=== PATIENT | female | born 1960 | race Caucasian/White ===

== ENCOUNTER 2017-08-29 09:32 | Inpatient (IN) | payer MEDICARE ==
[~2017-08-29] VITALS: Ht 172.7 cm; Wt 63.0 kg
[~2017-08-29 09:32] MED LIST: BACITRACIN 50,000 UNIT ONE; BUPIVACAINE/PF 0.5% ONE; EPINEPHRINE 1 MG/ML, 1ML ONE; OXYC5CAP2 PO; THROMBIN 5,000 UNIT VIAL TP ONE
[2017-08-29] MEDS ORDERED: LACTATED RINGERS 1,000 ML IV SCH (09:58)
[2017-08-29 10:22] VITALS: BP 133/74
[2017-08-29] MEDS ORDERED: MIDAZOLAM 1 MG/ML, 2ML ONE ×2 (12:51→13:09)
[2017-08-29] MEDS ORDERED: FENTANYL PF 100 MCG/2ML ONE (12:51)
[2017-08-29] MEDS ORDERED: methylPREDNISolone SOD SUCC 125 MG/2 ML ONE (13:45)
[2017-08-29] MEDS ORDERED: REMIFENTANIL 1 MG ONE (14:58)
[2017-08-29] MEDS ORDERED: SODIUM CHLORIDE 0.9%, 500ML IVBOLUS ONE (16:00)
[2017-08-29 16:23] LABS: INTERNATIONAL NORMALIZED RATIO 1.15 (0.93-1.1); PROTHROMBIN TIME 11.9 Seconds (9.6-11.5)
[2017-08-29 16:28] LABS: ALBUMIN 2.8 g/dL (3.4-5.0); ANION GAP 9 mmol/L (5-15); CALCIUM 7.5 mg/dL (8.5-10.1); CHLORIDE 112 mmol/L (98-107); CREATININE 0.38 mg/dL (0.55-1.02)
[2017-08-29 16:39] LABS: MEAN CORPUSCULAR HEMOGLOBIN 28.2 pg (27.0-34.8); MEAN CORPUSCULAR HGB CONC 32.6 g/dL (32.4-35.8); MEAN CORPUSCULAR VOLUME 86.6 fL (80-100); MEAN PLATELET VOLUME 6.9 fL (7.4-10.4); PLATELET COUNT 117 x10^3/uL (130-400); RED BLOOD COUNT 3.98 x10^6/uL (3.82-5.3); RED CELL DISTRIBUTION WIDTH 18.3 % (9.6-15.2)
[2017-08-29 16:41] LABS: MD YES
[2017-08-29 16:52] LABS: <PLATELET ESTIMATE> DECREASED; <PLT MORPHOLOGY> NORMAL PLT MORPH; ANISOCYTOSIS 1+; BAND#(MANUAL) 0.12 x10^3/uL; BANDS%(MANUAL) 2 % (0-7); BASOS#(MANUAL) 0.06 x10^3/uL (0-0.1); BASOS% (MANUAL) 1 % (0-1); LYMPH#(MANUAL) 0.31 x10^3/uL (1-3.4); LYMPHS% (MANUAL) 5 % (22-44); METAMYELOCYTES# (MANUAL) 0.06 x10^3/uL (0-0); METAMYELOCYTES% (MANUAL) 1 % (0-1); MONOS#(MANUAL) 0.37 x10^3/uL (0.3-2.7); MONOS% (MANUAL) 6 % (2-9); MYELOCYTES# (MANUAL) 0.06 x10^3/uL (0-0); MYELOCYTES% (MANUAL) 1 % (0-0); SEG#(MANUAL) 5.12 x10^3/uL (1.8-6.8); SEGS% (MANUAL) 84 % (42-75)
[2017-08-29] MEDS: POTASSIUM CHLORIDE 20 MEQ TAB.ER.PRT PO SCH ×2 (17:31→21:52)
[2017-08-29 19:24] LABS: TROPONIN I < 0.015 ng/mL (0.000-0.045)
[2017-08-29] MEDS: OXYcodone 5 MG/5 ML ORAL.SOL UDC PO PRN (21:51)
[2017-08-30 04:00] VITALS: BP 145/64
[2017-08-30] MEDS: OXYcodone 5 MG/5 ML ORAL.SOL UDC PO PRN (04:28)
[2017-08-30 04:41] LABS: BASOPHILS # (AUTO) 0.01 x10^3/uL (0-0.1); BASOPHILS % (AUTO) 0 % (0-1); EOSINOPHILS % (AUTO) 0 % (1-7); LYMPHOCYTES % (AUTO) 10 % (22-44); MD NO; MEAN CORPUSCULAR HEMOGLOBIN 28.4 pg (27.0-34.8); MEAN CORPUSCULAR HGB CONC 32.9 g/dL (32.4-35.8); MEAN CORPUSCULAR VOLUME 86.4 fL (80-100); MEAN PLATELET VOLUME 7.4 fL (7.4-10.4); MONOCYTES # (AUTO) 0.68 x10^3/uL (0.2-0.8); MONOCYTES % (AUTO) 16 % (2-9); NEUTROPHILS # (AUTO) 3.09 x10^3/uL (1.8-6.8); NEUTROPHILS % (AUTO) 74 % (42-75); PLATELET COUNT 105 x10^3/uL (130-400); RED BLOOD COUNT 3.92 x10^6/uL (3.82-5.3); RED CELL DISTRIBUTION WIDTH 17.9 % (9.6-15.2)
[2017-08-30 04:48] LABS: ALBUMIN 3.1 g/dL (3.4-5.0); ANION GAP 7 mmol/L (5-15); CALCIUM 8.2 mg/dL (8.5-10.1); CHLORIDE 105 mmol/L (98-107); CREATININE 0.49 mg/dL (0.55-1.02)
[2017-08-30 05:12] LABS: INTERNATIONAL NORMALIZED RATIO 1.17 (0.93-1.1); PROTHROMBIN TIME 12.1 Seconds (9.6-11.5)
[2017-08-30] MEDS ORDERED: BUPIVACAINE/PF 0.5% ONE (06:25)
[2017-08-30] MEDS ORDERED: THROMBIN 5,000 UNIT VIAL TP ONE (06:25)
[2017-08-30] MEDS ORDERED: EPINEPHRINE 1 MG/ML, 1ML ONE (06:26)
[2017-08-30] MEDS ORDERED: BACITRACIN 50,000 UNIT ONE (06:26)
[2017-08-30] MEDS ORDERED: SODIUM CHLORIDE 0.9%, 500ML IVBOLUS ONE (08:30)
[2017-08-30 09:44] LABS: AMPHETAMINE SCREEN, URINE Negative (Negative); BARBITURATE SCREEN, URINE Negative (Negative); BENZODIAZEPINE SCREEN, URINE Positive (Negative); CANNABINOID SCREEN, URINE Positive (Negative); COCAINE SCREEN, URINE Negative (Negative); METHADONE SCREEN, URINE Negative (Negative); OPIATE SCREEN, URINE Negative (Negative)
[2017-08-30] MEDS ORDERED: FENTANYL PF 250 MCG/5ML ONE ×2 (11:51→15:11)
[2017-08-30] MEDS ORDERED: NEOSTIGMINE 1 MG/ML, 10ML ONE (11:58)
[2017-08-30] MEDS ORDERED: DEXAMETHASONE 4 MG/ML, 1ML ONE (11:58)
[2017-08-30] MEDS ORDERED: GLYCOPYRROLATE 0.2MG/1ML, 5ML ONE (11:58)
[2017-08-30] MEDS ORDERED: PROPOFOL 10 MG/ML, 20ML ONE (11:58)
[2017-08-30] MEDS ORDERED: CEFAZOLIN 1,000 MG ONE (11:58)
[2017-08-30] MEDS ORDERED: ONDANSETRON 2MG/ML, 2ML ONE (11:58)
[2017-08-30] MEDS ORDERED: MIDAZOLAM 1 MG/ML, 2ML ONE (11:58)
[2017-08-30] MEDS ORDERED: SUCCINYLCHOLINE 20 MG/ML, 10ML ONE (11:58)
[2017-08-30] MEDS ORDERED: VASOPRESSIN 20 UNIT/ML, 1ML ONE (14:17)
[2017-08-30] MEDS ORDERED: PROPOFOL 10 MG/ML, 50ML ONE (14:17)
[2017-08-30] MEDS ORDERED: VANCOMYCIN 1,000 MG ONE (14:32)
[2017-08-30] MEDS ORDERED: HYDROCORTISONE 100 MG INJ. ONE (14:32)
[2017-08-30] MEDS ORDERED: CLINDAMYCIN 150 MG/ML, 6ML ONE (14:32)
[2017-08-30] MEDS ORDERED: OXYcodone 5 MG/5 ML ORAL.SOL UDC PO PRN (17:00)
[2017-08-30] MEDS ORDERED: PROMETHAZINE 25 MG/ML, 1ML IV PRN (17:00)
[2017-08-30] MEDS ORDERED: FENTANYL PF 100 MCG/2ML IV PRN (17:00)
[2017-08-30] MEDS ORDERED: MORPHINE SULFATE 4 MG/ML, 1ML IVPush PRN (17:00)
[2017-08-30] MEDS ORDERED: HYDROcodone/APAP 7.5-325MG/15ML UDC PO PRN (17:00)
[2017-08-30] MEDS ORDERED: LORazepam 2 MG/ML, 1ML IVPush PRN (17:00)
[2017-08-30] MEDS ORDERED: ONDANSETRON ODT 8 MG PO PRN (17:00)
[2017-08-30] MEDS ORDERED: OXYcodone 5 MG/5 ML ORAL.SOL UDC ONE (17:33)
[2017-08-30] MEDS ORDERED: LORazepam 2 MG/ML, 1ML ONE (17:33)
[2017-08-30] MEDS ORDERED: DIPHENHYDRAMINE 50 MG/ML, 1ML IM PRN (20:00)
[2017-08-30] MEDS ORDERED: ONDANSETRON 2MG/ML, 2ML IV PRN (20:00)
[2017-08-30] MEDS ORDERED: PROMETHAZINE 25 MG/ML, 1ML IM PRN (20:00)
[2017-08-30] MEDS ORDERED: DIPHENHYDRAMINE 50 MG CAPSULE PO PRN (20:00)
[2017-08-30] MEDS ORDERED: morphine SULFATE 10 MG/ML, 1ML IV PRN (20:00)
[2017-08-30] MEDS ORDERED: MAGNESIUM HYDROXIDE 8%, 30ML UDC PO PRN (20:00)
[2017-08-30] MEDS ORDERED: DIPHENHYDRAMINE 50 MG/ML, 1ML IVPush PRN (20:00)
[2017-08-30] MEDS ORDERED: BISACODYL 10 MG SUPP PR PRN (20:00)
[2017-08-30] MEDS ORDERED: HYDROcodone/APAP 5/325 TABLET PO PRN (20:00)
[2017-08-30] MEDS: CEFAZOLIN PMX 1GM/50ML 50 ML IVPB SCH (20:09)
[2017-08-30] MEDS: METHOCARBAMOL 750 MG TABLET PO SCH (20:09)
[2017-08-30] MEDS: D5%-0.9% NACL+KCL 20MEQ 1,000 ML IV SCH (20:41)
[2017-08-30] MEDS: LABETALOL 5MG/ML, 20ML IV SCH (22:45)
[2017-08-30] MEDS ORDERED: METH750T87 PO (23:08)
[2017-08-31] VITALS (7 sets, daily range): BP systolic 104–149; BP diastolic 66–96
[2017-08-31] MEDS: OXYcodone/APAP 5/325MG TABLET PO PRN ×3 (01:34→15:45)
[2017-08-31] MEDS: CEFAZOLIN PMX 1GM/50ML 50 ML IVPB SCH (04:20)
[2017-08-31] MEDS: METHOCARBAMOL 750 MG TABLET PO SCH ×3 (04:20→20:43)
[2017-08-31 05:12] LABS: ALBUMIN 3.2 g/dL (3.4-5.0); ANION GAP 8 mmol/L (5-15); CALCIUM 8.3 mg/dL (8.5-10.1); CHLORIDE 103 mmol/L (98-107); CREATININE 0.48 mg/dL (0.55-1.02)
[2017-08-31 05:20] LABS: BASOPHILS # (AUTO) 0.01 x10^3/uL (0-0.1); BASOPHILS % (AUTO) 0 % (0-1); EOSINOPHILS % (AUTO) 0 % (1-7); LYMPHOCYTES # (AUTO) 0.53 x10^3/uL (1-3.4); LYMPHOCYTES % (AUTO) 13 % (22-44); MD NO; MEAN CORPUSCULAR HEMOGLOBIN 28.6 pg (27.0-34.8); MEAN CORPUSCULAR HGB CONC 32.9 g/dL (32.4-35.8); MEAN CORPUSCULAR VOLUME 86.9 fL (80-100); MEAN PLATELET VOLUME 7.9 fL (7.4-10.4); MONOCYTES # (AUTO) 0.59 x10^3/uL (0.2-0.8); MONOCYTES % (AUTO) 14 % (2-9); NEUTROPHILS # (AUTO) 2.99 x10^3/uL (1.8-6.8); NEUTROPHILS % (AUTO) 73 % (42-75); PLATELET COUNT 103 x10^3/uL (130-400); RED BLOOD COUNT 3.92 x10^6/uL (3.82-5.3); RED CELL DISTRIBUTION WIDTH 17.6 % (9.6-15.2)
[2017-08-31] MEDS: LABETALOL 5MG/ML, 20ML IV SCH (07:00)
[2017-08-31] MEDS: D5%-0.9% NACL+KCL 20MEQ 1,000 ML IV SCH (08:00)
[2017-08-31] MEDS: SENNA/DOCUSATE TABLET PO SCH (09:00)
[2017-08-31] MEDS: ENOXAPARIN 40 MG/0.4 ML SQ SCH (18:21)
[2017-08-31] MEDS: OXYcodone IR 5MG TABLET PO PRN (20:43)
[2017-09-01 00:21] VITALS: BP 131/77
[2017-09-01] MEDS: OXYcodone IR 5MG TABLET PO PRN ×2 (01:06→20:54)
[2017-09-01 05:05] LABS: BASOPHILS # (AUTO) 0.04 x10^3/uL (0-0.1); BASOPHILS % (AUTO) 1 % (0-1); EOSINOPHILS # (AUTO) 0.02 x10^3/uL (0-0.4); EOSINOPHILS % (AUTO) 0 % (1-7); LYMPHOCYTES # (AUTO) 0.83 x10^3/uL (1-3.4); LYMPHOCYTES % (AUTO) 19 % (22-44); MD NO; MEAN CORPUSCULAR HGB CONC 33.2 g/dL (32.4-35.8); MEAN CORPUSCULAR VOLUME 87.3 fL (80-100); MEAN PLATELET VOLUME 8.5 fL (7.4-10.4); MONOCYTES # (AUTO) 0.45 x10^3/uL (0.2-0.8); MONOCYTES % (AUTO) 10 % (2-9); NEUTROPHILS # (AUTO) 3.06 x10^3/uL (1.8-6.8); NEUTROPHILS % (AUTO) 70 % (42-75); PLATELET COUNT 102 x10^3/uL (130-400); RED BLOOD COUNT 4.12 x10^6/uL (3.82-5.3); RED CELL DISTRIBUTION WIDTH 17.5 % (9.6-15.2)
[2017-09-01 05:13] LABS: CALCIUM 8.6 mg/dL (8.5-10.1); CHLORIDE 104 mmol/L (98-107)
[2017-09-01 05:17] LABS: ANION GAP 7 mmol/L (5-15); CREATININE 0.42 mg/dL (0.55-1.02)
[2017-09-01] MEDS: METHOCARBAMOL 750 MG TABLET PO SCH ×3 (06:00→20:53)
[2017-09-01 08:54] VITALS: BP 128/69
[2017-09-01] MEDS: SENNA/DOCUSATE TABLET PO SCH (09:00)
[2017-09-01 13:30] VITALS: BP 122/69
[2017-09-01] MEDS: ENOXAPARIN 40 MG/0.4 ML SQ SCH (17:40)
[2017-09-01 19:20] VITALS: BP 115/72
[2017-09-02 01:40] VITALS: BP 101/66
[2017-09-02] MEDS: METHOCARBAMOL 750 MG TABLET PO SCH ×2 (05:19→15:24)
[2017-09-02 05:30] LABS: BASOPHILS # (AUTO) 0.03 x10^3/uL (0-0.1); BASOPHILS % (AUTO) 1 % (0-1); EOSINOPHILS # (AUTO) 0.02 x10^3/uL (0-0.4); EOSINOPHILS % (AUTO) 1 % (1-7); LYMPHOCYTES # (AUTO) 0.61 x10^3/uL (1-3.4); LYMPHOCYTES % (AUTO) 13 % (22-44); MD NO; MEAN CORPUSCULAR HEMOGLOBIN 28.4 pg (27.0-34.8); MEAN CORPUSCULAR HGB CONC 32.5 g/dL (32.4-35.8); MEAN CORPUSCULAR VOLUME 87.4 fL (80-100); MEAN PLATELET VOLUME 8.6 fL (7.4-10.4); MONOCYTES # (AUTO) 0.55 x10^3/uL (0.2-0.8); MONOCYTES % (AUTO) 12 % (2-9); NEUTROPHILS # (AUTO) 3.47 x10^3/uL (1.8-6.8); NEUTROPHILS % (AUTO) 74 % (42-75); PLATELET COUNT 104 x10^3/uL (130-400); RED CELL DISTRIBUTION WIDTH 17.7 % (9.6-15.2)
[2017-09-02 05:43] LABS: CALCIUM 8.8 mg/dL (8.5-10.1); CHLORIDE 102 mmol/L (98-107)
[2017-09-02 05:47] LABS: ANION GAP 7 mmol/L (5-15); CREATININE 0.41 mg/dL (0.55-1.02)
[2017-09-02 07:10] VITALS: BP 111/75
[2017-09-02] MEDS: SENNA/DOCUSATE TABLET PO SCH (08:23)
[2017-09-02] MEDS: OXYcodone IR 5MG TABLET PO PRN ×2 (10:06→17:59)
[2017-09-02] MEDS ORDERED: REGADENOSON 0.4 MG/5 ML SYRINGE ONE (11:34)
[2017-09-02] MEDS ORDERED: SENN1TAB7 PO (17:06)
[2017-09-02] MEDS: ENOXAPARIN 40 MG/0.4 ML SQ SCH (17:59)
== END 2017-09-02 18:45 | disposition home or self-care (01) | DRG 472 ==
LOC: ORIP 09:32 → CCU 14:05 → 4EST 08-30 18:17
PROVIDERS: ADMIT Neurological Surgery; ATTEND Neurological Surgery
PROC: 02HV33Z Insertion of Infusion Device into Superior Vena Cava, Percutaneous Approach (ICD-10-PCS; 2017-08-29)
PROC: 01N10ZZ Release Cervical Nerve, Open Approach (ICD-10-PCS; 2017-08-30)
PROC: 0RB30ZZ Excision of Cervical Vertebral Disc, Open Approach (ICD-10-PCS; 2017-08-30)
PROC: 4A11X4G Monitoring of Peripheral Nervous Electrical Activity, Intraoperative, External Approach (ICD-10-PCS; 2017-08-30)
PROC: 0RG10A0 Fusion of Cervical Vertebral Joint with Interbody Fusion Device, Anterior Approach, Anterior Column, Open Approach (ICD-10-PCS; principal; 2017-08-30 14:30)
DX: M48.02 Spinal stenosis, cervical region (principal); M47.12 Other spondylosis with myelopathy, cervical region; M43.12 Spondylolisthesis, cervical region; D69.59 Other secondary thrombocytopenia; M19.90 Unspecified osteoarthritis, unspecified site; R00.0 Tachycardia, unspecified; R06.89 Other abnormalities of breathing; I95.2 Hypotension due to drugs; Z53.8 Procedure and treatment not carried out for other reasons
CPT/HCPCS: 36415; 71045; 72040; 78452; 80048; 80307; 82040; 82533; 84443; 84484; 85025; 85610; 87081; 93005; 93017; 93306; C1713; C1776; J0171; J0690; J1100; J1650; J2250; J2405; J2704; J2710; J2785; J3010; J3370; J3490; A9502; C1762; C9898; J0330; J1720; J2060; J2930; J3480; J7040; J7120